=== PATIENT | male | born 1940 ===

== ENCOUNTER 2018-07-04 21:22 | Outpatient (REF) | payer MEDICARE, MEDICAID, SELFPAY ==
[2018-07-04 22:12] LABS: Anion Gap 3.8 mmol/L (3-11); BUN 24 mg/dL (7-18); CO2 30.2 mmol/L (21.0-32.0); CREATININE 1.67 mg/dL (0.70-1.30); Calcium 8.4 mg/dL (8.5-10.1); Chloride 104 mmol/L (98-107); Estimated GFR 39.99 (mL/min/1.73m2); Glucose 98 mg/dL (70-100); Potassium 4.5 mmol/L (3.5-5.1); Sodium 138 mmol/L (136-145)
== END 2018-07-04 21:23 ==
LOC: NCHCN 21:22
PROVIDERS: PCP Internal Medicine; Visit Provider Internal Medicine
DX: I10 Essential (primary) hypertension (principal)
CPT/HCPCS: 80048

== ENCOUNTER 2019-06-09 12:59 | Outpatient (REF) | payer MEDICARE, MEDICAID, SELFPAY ==
[2019-06-09 21:36] LABS: Anion Gap 9.3 mmol/L (3-11); BUN 24 mg/dL (7-18); CO2 27.7 mmol/L (21.0-32.0); CREATININE 1.97 mg/dL (0.70-1.30); Calcium 8.8 mg/dL (8.5-10.1); Calculated LDL 106 mg/dL; Chloride 102 mmol/L (98-107); Cholesterol 177 mg/dL (50-200); Estimated GFR 32.96 (mL/min/1.73m2); Glucose 90 mg/dL (70-100); HDL Cholesterol 40 mg/dL (40-60); Potassium 4.8 mmol/L (3.5-5.1); Sodium 139 mmol/L (136-145); Triglyceride 159 mg/dL (30-150)
== END 2019-06-09 13:19 ==
LOC: NCHCN 12:59
PROVIDERS: PCP Internal Medicine; Visit Provider Internal Medicine
DX: I25.10 Atherosclerotic heart disease of native coronary artery without angina pectoris (principal)
CPT/HCPCS: 80048; 80061; 83721

== ENCOUNTER 2020-09-06 11:46 | Outpatient (REF) | payer MEDICARE, MEDICAID, SELFPAY ==
[2020-09-06 21:17] LABS: Abs Immature Grans 0.04 10^3/uL (0.0-0.06); Absolute Basophil Count 0.05 10^3/uL (0.0-0.2); Absolute Eosinophil Count 0.15 10^3/uL (0.0-0.7); Absolute Lymphocyte Count 0.58 10^3/uL (1.2-3.4); Absolute Monocyte Count 0.77 10^3/uL (0.1-0.8); Absolute Neutrophil Count 4.51 10^3/uL (1.2-6.7); Basophils % 0.8; Eosinophils % 2.5; HCT 42.4 % (40.0-50.0); HGB 13.2 g/dL (13.5-17.5); Immature Grans % 0.7; Lymphocytes % 9.5; MCH 28.1 pg (27.0-33.0); MCHC 31.1 % (32.0-36.0); MCV 90.4 fL (80-95); MPV 8.7 fL (8.0-11.0); Monocytes % 12.6; Neutrophils % 73.9; Nucleated RBC 0 %; Platelet Count 378 10^3/uL (130-400); RBC 4.69 10^6/uL (4.36-5.78); RDW 13.3 % (11.8-14.1); RDW-SD 44.4 fL
[2020-09-06 21:47] LABS: ALT 14 U/L (16-63); AST 13 U/L (15-37); Albumin 3.1 g/dL (3.4-5.0); Alkaline Phosphatase 128 U/L (46-116); Anion Gap 4.4 mmol/L (3-11); BUN 14 mg/dL (7-18); Bilirubin, Total 0.2 mg/dL (0.2-1.0); CO2 30.6 mmol/L (21.0-32.0); CREATININE 1.31 mg/dL (0.70-1.30); Calcium 8.3 mg/dL (8.5-10.1); Chloride 104 mmol/L (98-107); Estimated GFR 52.65 (mL/min/1.73m2); Glucose 106 mg/dL (74-106); Potassium 4.4 mmol/L (3.5-5.1); Sodium 139 mmol/L (136-145); Total Protein 6.7 g/dL (6.4-8.2)
[2020-09-09 13:26] LABS: IgA 527 mg/dL (85-499); Interpretation (See Note); Tissue Transglutaminase IgA <1.2 U/mL (<4.0)
== END 2020-09-06 12:06 ==
LOC: NCHCN 11:46
PROVIDERS: PCP Internal Medicine; Visit Provider Internal Medicine
DX: I10 Essential (primary) hypertension (principal); R19.7 Diarrhea, unspecified
CPT/HCPCS: 80053; 82784; 83516; 85025

== ENCOUNTER 2020-10-28 08:07 | Outpatient (REF) | payer MEDICARE, MEDICAID, SELFPAY ==
[2020-10-28 21:48] LABS: HCT 42.3 % (40.0-50.0); HGB 13.2 g/dL (13.5-17.5); MCH 27.8 pg (27.0-33.0); MCHC 31.2 % (32.0-36.0); MCV 89.2 fL (80-95); Platelet Count 542 10^3/uL (130-400); RBC 4.74 10^6/uL (4.36-5.78); RDW 14.6 % (11.8-14.1); RDW-SD 47.8 fL; WBC 10.91 10^3/uL (4.4-10.8)
[2020-10-28 22:26] LABS: ALT 14 U/L (16-63); AST 16 U/L (15-37); Albumin 2.9 g/dL (3.4-5.0); Alkaline Phosphatase 245 U/L (46-116); Anion Gap 9.4 mmol/L (3-11); BUN 25 mg/dL (7-18); Bilirubin, Total 0.5 mg/dL (0.2-1.0); CO2 24.6 mmol/L (21.0-32.0); CREATININE 1.52 mg/dL (0.70-1.30); Calcium 8.6 mg/dL (8.5-10.1); Chloride 100 mmol/L (98-107); Estimated GFR 44.35 (mL/min/1.73m2); Glucose 94 mg/dL (74-106); Potassium 4.7 mmol/L (3.5-5.1); Sodium 134 mmol/L (136-145); TSH 7.14 uIU/mL (0.36-3.74); Total Protein 7.1 g/dL (6.4-8.2)
[2020-10-30 11:53] LABS: IgA 701 mg/dL (85-499); Interpretation (See Note); Tissue Transglutaminase IgA 1.2 U/mL (<4.0)
== END 2020-10-28 08:27 ==
LOC: NCHCN 08:07
PROVIDERS: PCP Internal Medicine; Visit Provider Internal Medicine
DX: R10.9 Unspecified abdominal pain (principal); R19.7 Diarrhea, unspecified; I10 Essential (primary) hypertension; N18.30 Chronic kidney disease, stage 3 unspecified
CPT/HCPCS: 80053; 82784; 83516; 85027; 84443

== ENCOUNTER 2021-02-19 11:46 | Outpatient (REF) | payer OTHER, MEDICAID, SELFPAY ==
[2021-02-19 13:55] LABS: Abs Immature Grans 0.03 10^3/uL (0.0-0.06); Absolute Basophil Count 0.04 10^3/uL (0.0-0.2); Absolute Eosinophil Count 0.05 10^3/uL (0.0-0.7); Absolute Lymphocyte Count 0.57 10^3/uL (1.2-3.4); Absolute Monocyte Count 0.67 10^3/uL (0.1-0.8); Absolute Neutrophil Count 5.64 10^3/uL (1.2-6.7); Basophils % 0.6; Eosinophils % 0.7; HCT 36.5 % (40.0-50.0); HGB 12.1 g/dL (13.5-17.5); Immature Grans % 0.4; Lymphocytes % 8.1; MCH 30.2 pg (27.0-33.0); MCHC 33.2 % (32.0-36.0); MPV 8.8 fL (8.0-11.0); Monocytes % 9.6; Neutrophils % 80.6; Nucleated RBC 0 %; Platelet Count 423 10^3/uL (130-400); RBC 4.01 10^6/uL (4.36-5.78); RDW 15.1 % (11.8-14.1); RDW-SD 50.6 fL
[2021-02-19 14:39] LABS: ALT 18 U/L (16-63); AST 22 U/L (15-37); Albumin 2.3 g/dL (3.4-5.0); Alkaline Phosphatase 155 U/L (46-116); Anion Gap 9.1 mmol/L (3-11); BUN 14 mg/dL (7-18); Bilirubin, Total 0.2 mg/dL (0.2-1.0); CO2 22.9 mmol/L (21.0-32.0); CREATININE 1.2 mg/dL (0.70-1.30); Calcium 7.6 mg/dL (8.5-10.1); Chloride 107 mmol/L (98-107); Estimated GFR 58.26 (mL/min/1.73m2); Glucose 140 mg/dL (74-106); Sodium 139 mmol/L (136-145); TSH (W/Ref FT4) 5.45 uIU/mL (0.36-3.74); Total Protein 5.7 g/dL (6.4-8.2)
[2021-02-19 14:58] LABS: FREE T4 0.91 ng/dL (0.76-1.46)
== END 2021-02-19 11:47 | disposition home or self-care (01) ==
LOC: NCHCN 11:46
PROVIDERS: PCP Internal Medicine; Visit Provider Internal Medicine
DX: I10 Essential (primary) hypertension (principal); R53.83 Other fatigue; R19.7 Diarrhea, unspecified; R15.9 Full incontinence of feces
CPT/HCPCS: 80053; 84439; 84443; 85025